=== PATIENT | male | born 1975 | race Caucasian/White ===

== ENCOUNTER 2017-11-20 05:50 | Day surgery (SDC) | payer OTHER ==
[~2017-11-20] VITALS: Ht 172.7 cm; Wt 79.4 kg
[2017-11-20] MEDS ORDERED: DOXEPIN HCL50 MG PO (06:23)
[2017-11-20] MEDS ORDERED: MOBIC15 MG PO (06:24)
[2017-11-20] MEDS ORDERED: OMEPRAZOLE20 MG PO (06:24)
[2017-11-20] MEDS ORDERED: SERTRALINE HCL100 MG PO (06:25)
[2017-11-20] MEDS ORDERED: LAMICTAL XR200 MG PO (06:25)
[2017-11-20] MEDS ORDERED: CLONIDINE HCL0.2 MG PO (06:26)
--- NOTE | 2017-11-20 08:29 | NUR ---
11/20/17 0829 Terrie Alfredo 0815 PT ARRIVED REEACTIVE WITH 8L VIA MASK. 0828 PT AWAKE REPORTS PAIN IN ARM 6/10 AND NUMB FIGERS.
--- NOTE | 2017-11-20 09:08 | NUR ---
PT ARRIVES TO DS AWAKE AND ALERT. PT PROVIDED ICED WATER AND CRACKERS. PT HAS NO COMPLAINTS AT THIS TIME.
[2017-11-20] MEDS ORDERED: NORCO 10-325 T1 EACH PO (09:35)
--- NOTE | 2017-11-20 10:19 | NUR ---
LE 0945: PT TOLERATES PO WELL AND HAS MET DC CRITERIA. PT AGREES HE IS READY TO GO HOME AND STATES MINIMAL PAIN 3/10. DC INSTRUCTIONS GIVEN IN PRESENCE OF PT AND 2 [employer] GUARDS. PT VERBALIZES AN UNDERSTANDING OF DC INSTRUCTIONS AND ALL QUESTIONS ARE ANSWERED. PT DID NOT VOID PRIOR TO DC. GUARDS HELP PT GET DRESSED AND PT DC'S DS RM 10 VIA WHEELCHIAR ACCOMPANIED BY [employer]SPORT TEAM.
--- NOTE | 2017-11-25 07:13 | OR ---
[facility] [address], [place] [address] Signed DATE OF OPERATION: 11/20/2017 SURGEON: Lilly Crawford MD PREOPERATIVE DIAGNOSIS: Partial rupture of the common extensor origin, right elbow. POSTOPERATIVE DIAGNOSIS: Partial rupture of the common extensor origin, right elbow. PROCEDURE: Debridement and repair extensor origin, right lateral elbow. ANESTHESIA: General. SPECIMENS AND COMPLICATIONS: There were no specimens or complications. TOURNIQUET TIME: About 45 minutes. WHAT WAS DONE: The patient was taken to the operating room. After anesthesia was induced and the airway secured, the right upper extremity was positioned, prepped and draped in a routine sterile fashion. The arm was exsanguinated with an Esmarch bandage. Pneumatic tourniquet was inflated to 250 mmHg pressure. A curvilinear incision was made over the lateral epicondylar area. Skin was divided sharply. Subcutaneous tissue was bluntly spread. Hemostasis was achieved with electrocautery. We then elevated the common extensor origin off the lateral epicondyle and the supracondylar ridge. We then inverted it and were able to debride the torn area off the bottom side. We extended the incision slightly distally and examine the radial capitellar joint where there was a rather marked synovitis. A limited synovectomy was performed of the elbow. The wound was gently irrigated. We then used a rongeur and a small osteotome to scarify the lateral epicondylar area. A single 5.5 Bio-Corkscrew anchor was then placed in the lateral epicondyle and used to reattach the common extensor origin. We then reinforced the repair with multiple sutures of FiberWire. The wound was irrigated, closed in standard fashion. Sterile dressing applied. He was placed in a posterior splint and a sling, awakened, and taken to the recovery room where he arrived in stable condition. Counts Electronically Signed By: LILLY CRAWFORD MD 11/25/17 0713 PATIENT NAME: TWILA AREVALO OPERATIVE REPORT DATE OF : 75 REPORT #: [id number] PHYSICIAN: LILLY CRAWFORD MD PCP: NANCI FERGUSON MD REPORT IS CONFIDENTIAL AND NOT TO BE RELEASED WITHOUT AUTHORIZATION [address] [address] Signed were correct and antibiotic protocols were followed. Lilly Crawford MD WFB/MODL /[id number] Copies: ~ Electronically Signed By: LILLY CRAWFORD MD 11/25/17 0713 PATIENT NAME: TWILA AREVALO OPERATIVE REPORT DATE OF : 75 REPORT #: [id number] PHYSICIAN: LILLY CRAWFORD MD PCP: NANCI FERGUSON MD REPORT IS CONFIDENTIAL AND NOT TO BE RELEASED WITHOUT AUTHORIZATION
== END 2017-11-20 10:15 | disposition home or self-care (01) ==
LOC: OPS 05:50 → DS 05:50 → OPS 06:45
PROVIDERS: Orthopaedic Surgery
PROC: 0LQ30ZZ Repair Right Upper Arm Tendon, Open Approach (ICD-10-PCS; principal; 2017-11-20 06:45)
DX: S56.511A Strain of other extensor muscle, fascia and tendon at forearm level, right arm, initial encounter (principal); F31.9 Bipolar disorder, unspecified; F41.9 Anxiety disorder, unspecified; X58.XXXA Exposure to other specified factors, initial encounter; Z79.1 Long term (current) use of non-steroidal anti-inflammatories (NSAID); Z79.899 Other long term (current) drug therapy
CPT/HCPCS: 01710; 64417; 76942; C1713; J0330; J0690; J1100; J1170; J1885; J2250; J2405; J2704; J2795; J3010; J7120